=== PATIENT | male | born 2000 | race Caucasian/White ===

== ENCOUNTER 2024-12-07 18:09 | Emergency (ER) | payer SELFPAY | END 2024-12-07 19:36 | disposition home or self-care (01) | LOC: JP.ED 18:09 | DX: S62.326A Displaced fracture of shaft of fifth metacarpal bone, right hand, initial encounter for closed fracture (principal); Z88.0 Allergy status to penicillin; Z88.1 Allergy status to other antibiotic agents; Z91.013 Allergy to seafood; W22.8XXA Striking against or struck by other objects, initial encounter | CPT/HCPCS: 29125; 73130-26-RT; 73130-RT; 99283-25 ==